=== PATIENT | male | born 1985 | race Caucasian/White ===

== ENCOUNTER 2020-03-03 20:19 | Emergency (ER) | payer OTHER ==
[2020-03-03] MEDS ORDERED: methylPREDNISolone Sodium Succinate 125 MG/2 ML SDV IM ONE (20:51)
--- NOTE | 2020-03-03 20:57 | EDM.PDOC ---
ED HPI GENERAL MEDICAL PROBLEM - General Chief Complaint: Allergic Reaction Stated Complaint: BEE STING Time Seen by Provider: 03/03/20 20:30 Source of Information: Reports: Patient History Limitations: Reports: No Limitations - History of Present Illness INITIAL COMMENTS - FREE TEXT/NARRATIVE: 34-year-old male who was having a generalized reaction to some type of the wasp sting on his right ankle. He has a history of a remote allergic reaction to a sting when he was a child, he has not had any reaction since but this afternoon he got stung on his right ankle and 20 minutes later started to feel a tightness in his upper chest and shoulders, started developing erythema on his arms and upper chest and felt his throat was getting "itchy". No shortness of breath but it felt tight. Denies nausea or vomiting, headache, lightheaded or other symptoms. He did take 50 mg of Benadryl in route to the hospital. Onset: Sudden Duration: Hour(s): (30 minutes ago) Location: Reports: Generalized (Wasp sting is on his right ankle) bilateral shoulder tightness Pain Score (Numeric/FACES): 2 - Related Data Allergies Allergy/AdvReac Type Severity Reaction Status Date / Time bee venom protein (honey bee) Allergy Hives Verified 03/03/20 20:23 Home Meds: Home Meds Citalopram Hydrobromide [Celexa] 10 mg PO DAILY 03/03/20 [History] Past Medical History Gastrointestinal History: Reports: Other (See Below) Other Gastrointestinal History: malrotation of small intestine Psychiatric History: Reports: Anxiety - Infectious Disease History Infectious Disease History: Reports: Chicken Pox - Past Surgical History GI Surgical History: Reports: Appendectomy Social & Family History - Tobacco Use Smoking Status *Q: Never Smoker - Caffeine Use Caffeine Use: Reports: Coffee, Soda - Recreational Drug Use Recreational Drug Use: No ED ROS ALLERGIC REACTION - Review of Systems Review Of Systems: See Below Constitutional: Denies: Fever, Chills HEENT: Denies: Throat Pain Respiratory: Denies: Shortness of Breath Cardiovascular: Reports: Chest Pain (Slight tightness in his upper chest and shoulders) GI/Abdominal: Reports: No Symptoms Musculoskeletal: Reports: Other (Shoulders and neck feel tight and sore) Skin: Reports: Erythema (He is developed a macular erythema on both flexor surfaces of his forearms, his upper chest and some scattered spots around his neck and hairline) Neurological: Reports: No Symptoms Psychiatric: Reports: No Symptoms ED EXAM GENERAL NO PERIP PULSE - Physical Exam Exam: See Below Exam Limited By: No Limitations General Appearance: Alert, No Apparent Distress Eye Exam: Bilateral Eye: Normal Inspection Throat/Mouth: Normal Inspection (No mucosal erythema, edema or abnormalities. No stridor) Head: Atraumatic Neck: Other (Macular blanching erythematous developed across the back of his neck and hairline, no hives or palpable lesions) Respiratory/Chest: No Respiratory Distress, Lungs Clear Cardiovascular: Regular Rate, Rhythm GI/Abdominal: Soft Extremities: Other (Small sting zehra on the lateral aspect of his right ankle, otherwise erythematous macular blanching lesions as documented earlier) Neurological: Alert, Oriented Course - Vital Signs Last Recorded V/S: Last Vital Signs Temp 98.2 F 03/03/20 20:24 Pulse 72 03/03/20 20:24 Resp 17 03/03/20 20:24 BP 128/82 03/03/20 20:24 Pulse Ox 96 03/03/20 20:24 - Orders/Labs/Meds Meds: Medications Discontinued Medications Generic Name Dose Route Start Last Admin Trade Name Freq PRN Reason Stop Dose Admin Methylprednisolone Sodium Succinate 125 mg 03/03/20 20:51 03/03/20 21:01 Solu-Medrol IM 03/03/20 20:52 125 mg ONETIME ONE Administration - Re-Assessments/Exams Free Text/Narrative Re-Assessment/Exam: 03/03/20 20:56 Patient was initially observed for the first 15 to 20 minutes, he remained stable but the erythema was slightly worsening. It was still not itchy or significantly symptomatic. He was then given an IM injection of Solu-Medrol at 125 mg and will be observed for an additional half hour. 03/03/20 21:14 Patient was rechecked after 30 minutes and was improving fairly rapidly. He was given a prescription for an EpiPen, and will follow-up with his primary care went home. He is intending on going home tomorrow. He can continue repeating Benadryl 50 mg every 4 hours for any persistent symptoms and can return anytime for further treatment if needed. Departure - Departure Time of Disposition: 21:29 Disposition: Home, Self-Care 01 Clinical Impression: Allergic reaction to bee sting - Discharge Information Instructions: Bee, Wasp, or Hornet Sting, Adult Referrals: PCP,None [Primary Care Provider] - Forms: ED Department Discharge Care Plan Goals: Continue with Benadryl 50 mg every 4 hours as needed for persistent rash or itching. Fill EpiPen prescription tomorrow for future use if re-stung, and recheck with your primary provider when home. Return to the emergency room if worsening or you develop other concerns. Sepsis Event Note (ED) - Evaluation Sepsis Screening Result: No Definite Risk - Focused Exam Vital Signs: Vital Signs Temp Pulse Resp BP Pulse Ox 03/03/20 20:24 98.2 F 72 17 128/82 96 03/03/20 20:23 98.2 F 72 17 128/82 96
== END 2020-03-03 21:34 | disposition home or self-care (01) ==
LOC: JP.ED 20:19
DX: T63.441A Toxic effect of venom of bees, accidental (unintentional), initial encounter (principal); Z91.030 Bee allergy status; F41.9 Anxiety disorder, unspecified; Z79.899 Other long term (current) drug therapy
CPT/HCPCS: 96372; 99282; J2930